=== PATIENT | male | born 1995 | race Caucasian/White ===

== ENCOUNTER 2018-03-01 14:24 | Emergency (ER) | payer BC, OTHER ==
[~2018-03-01] VITALS: Ht 180.3 cm; Wt 84.1 kg
[2018-03-01] MEDS ORDERED: IBUP-1986 PO (15:23)
[2018-03-01 15:31] VITALS: BP 137/81
== END 2018-03-01 15:32 | disposition home or self-care (01) ==
LOC: ER 14:25
DX: S00.83XA Contusion of other part of head, initial encounter (principal); Z79.899 Other long term (current) drug therapy; W22.8XXA Striking against or struck by other objects, initial encounter; Y93.89 Activity, other specified; Y92.89 Other specified places as the place of occurrence of the external cause; Y99.8 Other external cause status
CPT/HCPCS: 70200; 99284

== ENCOUNTER 2023-10-05 08:03 | Emergency (ER) | payer BC, OTHER ==
[~2023-10-05] VITALS: Ht 182.9 cm; Wt 84.1 kg
[~2023-10-05 08:03] MED LIST: IBUP-1986 PO
[2023-10-05 08:07] VITALS: TEMP 98.2
[2023-10-05 09:08] LABS: BASOPHILS % (AUTO) 0.2 % (0-1); LYMPHOCYTES # (AUTO) 1.7 X10'3 (1.1-4.8); MONOCYTES # (AUTO) 0.6 X10'3 (0-0.9)
[2023-10-05] MEDS: ondansetron/PF 4mg/2ml inj IV ONE (09:09)
[2023-10-05] MEDS: normal saline 1000ml 1,000 ML IV ONE ×3 (09:09→10:22)
[2023-10-05 09:10] LABS: CHLORIDE 97 MMOL/L (99-107); POTASSIUM 3.2 MMOL/L (3.5-5.1); SODIUM 138 MMOL/L (135-145)
[2023-10-05 09:13] LABS: EOSINOPHILS % (AUTO) 0 % (0-6); HEMATOCRIT 51.1 % (42.0-52.0); LYMPHOCYTES % (AUTO) 17.9 % (21-51); MEAN CORPUSCULAR HEMOGLOBIN 31.1 PG (27.0-31.0); MEAN CORPUSCULAR HGB CONC 35.4 g/dL (33.0-36.5); MEAN CORPUSCULAR VOLUME 87.8 FL (78-98); MEAN PLATELET VOLUME 8.3 FL (7.4-10.4); MONOCYTES % (AUTO) 6.1 % (2-12); NEUTROPHILS # (AUTO) 7.3 X10'3 (1.8-7.7); NEUTROPHILS % (AUTO) 75.8 % (42-75); PLATELET COUNT 260 X10'3 (140-440); RED BLOOD COUNT 5.82 X10'6 (4.70-6.10); RED CELL DISTRIBUTION WIDTH 12.4 % (11.5-14.5); WHITE BLOOD COUNT 9.7 X10'3 (4.5-11.0)
[2023-10-05 09:24] LABS: HEMOGLOBIN 18.1 g/dl (14.0-17.9)
[2023-10-05 09:39] LABS: ALANINE AMINOTRANSFERASE 31 U/L (12-78); ALBUMIN 4.7 G/DL (3.4-5.0); ALBUMIN/GLOBULIN RATIO 1.3 (1.1-1.5); ALKALINE PHOSPHATASE 69 IU/L (46-116); ANION GAP 18 (8-16); ASPARTATE AMINO TRANSFERASE 28 U/L (10-37); BILIRUBIN,TOTAL 1.9 MG/DL (0.1-1.0); BLOOD UREA NITROGEN 17 MG/DL (7-18); CALCIUM 9.5 MG/DL (8.5-10.1); CREATININE 0.85 MG/DL (0.60-1.10); GLUCOSE 106 MG/DL (70-104); LIPASE 31 U/L (16-77); TOTAL CARBON DIOXIDE 22.8 MMOL/L (24-32); TOTAL PROTEIN 8.2 G/DL (6.4-8.2); eCRCL 143 ML/MIN; eGFR > 90 ML/MIN
[2023-10-05] MEDS ORDERED: ONDA4TAB12 PO (10:20)
[2023-10-05] MEDS: potassium Cl 20 mEq SR tablet PO STA (10:22)
[2023-10-05 11:04] LABS: BILIRUBIN,URINE SMALL (Neg); CLARITY,URINE CLOUDY (Clear); COLOR,URINE YELLOW (Yellow); GLUCOSE, URINE NEGATIVE (Neg); KETONES,URINE >=80 mg/dl (Neg); LEUKOCYTE ESTERASE ,URINE NEGATIVE (Neg); NITRITES, URINE NEGATIVE (Neg); OCCULT BLOOD,URINE NEGATIVE (Neg); PH,URINE 7.5 (4.8-8.0); PROTEIN,URINE TRACE mg/dl (Neg)
[2023-10-05 11:06] LABS: UA COLLECTION TYPE NON-SPECIFIED
[2023-10-05 11:11] VITALS: BP 120/78; PULSE 70; RESP 16; O2SAT 100
[2023-10-05 11:11] LABS: BACTERIA,URINE FEW /HPF (Neg); MUCUS STRANDS MANY /LPF (Neg); RBC,URINE 0-2 /HPF (0-2); SQUAMOUS EPITHELIAL CELL,UR FEW /LPF (FEW); WBC,URINE 0-4 /HPF (0-4)
[2023-10-05 11:12] LABS: AMORPHOUS PHOSPHATES 2+
[2023-10-05 11:33] LABS: URINE AMPHETAMINE SCREEN NEGATIVE (Neg); URINE BARBITUATE SCREEN NEGATIVE (Neg); URINE BENZODIAZEPINES SCREEN NEGATIVE (Neg); URINE COCAINE SCREEN POSITIVE (Neg); URINE METHADONE SCREEN NEGATIVE (Neg); URINE OPIATE SCREEN NEGATIVE (Neg); URINE PHENCYCLIDINE SCREEN NEGATIVE (Neg)
[2023-10-05 11:34] LABS: URINE CANNABINOID SCREEN POSITIVE (Neg)
== END 2023-10-05 11:14 | disposition home or self-care (01) ==
LOC: ER 08:04
DX: E87.6 Hypokalemia (principal); R11.2 Nausea with vomiting, unspecified; Z88.6 Allergy status to analgesic agent; E86.0 Dehydration
CPT/HCPCS: 36415; 80053; 80305; 81001; 83690; 85025; 96361; 96374; 99283; J2405; J7030